=== PATIENT | male | born 1980 ===

== ENCOUNTER 2017-08-14 23:12 | Emergency (ER) | payer SELFPAY ==
[2017-08-15 00:12] VITALS: BMI 25.9
[2017-08-15 00:17] VITALS: BP 119/78; TEMP 98.2; O2SAT 98
[2017-08-15] MEDS ORDERED: DiphenhydrAMINE 50 mg/ml Inj IVP STA (00:26)
[2017-08-15] MEDS ORDERED: Sodium Chloride 0.9% 1,000 ML IV STA (00:55)
--- NOTE | 2017-08-15 01:11 | ED PDOC ---
Arrival/HPI <Schuyler Suarez - Last Filed: 08/15/17 01:29> - General Historian: Patient - History of Present Illness Time/Duration: Other (yesterday) <Radha Velázquez - Last Filed: 08/18/17 03:10> - General Chief Complaint: Allergic Reaction Time Seen by Provider: 08/15/17 00:12 - History of Present Illness Narrative History of Present Illness (Text): 08/15/17 01:08 37-year-old male presents today with allergic reaction. Patient states since yesterday around 7 PM he developed a rash to the right hand. Patient states he noticed the entire body became blotchy with redness. Patient denies chest pain or shortness of breath. Denies fevers or chills. Denies difficulty breathing or swallowing. Patient states he'll take a Benadryl at home and the symptoms will improve but then they will return after about 4-6 hours. Patient states at no point in time was he having any difficulty breathing or swallowing or feeling as if his throat was closing. Patient denies new soaps lotions or detergents, colognes or medications. Patient denies new foods. Patient denies sick contacts. Denies any other complaints. (Radha Velázquez) Past Medical History - Provider Review Nursing Documentation Reviewed: Yes - Travel History Have you recently traveled outside [place] w/in the past 3 mons?: No - Tetanus Immunization Tetanus Immunization: Unknown - Psychiatric Hx Substance Use: No <Radha Velázquez - Last Filed: 08/18/17 03:10> Family/Social History - Physician Review Nursing Documentation Reviewed: Yes Family/Social History: Unknown Family HX Smoking Status: Never Smoked Hx Alcohol Use: Yes Frequency of alcohol use: Socially Hx Substance Use: No <Radha Velázquez - Last Filed: 08/18/17 03:10> Allergies/Home Meds <Schuyler Suarez - Last Filed: 08/15/17 01:29> <Radha Velázquez - Last Filed: 08/18/17 03:10> Allergies/Adverse Reactions: Allergies No Known Allergies Allergy (Verified 08/15/17 00:11) Review of Systems - Review of Systems Constitutional: absent: Fatigue, Fevers Respiratory: absent: SOB, Cough Cardiovascular: absent: Chest Pain, Palpitations Gastrointestinal: absent: Abdominal Pain, Nausea, Vomiting Skin: Rash, Pruritis Neurological: absent: Headache, Dizziness Psychiatric: absent: Anxiety, Depression <Radha Velázquez - Last Filed: 08/18/17 03:10> Physical Exam Vital Signs Reviewed: Yes Temperature: Afebrile Blood Pressure: Normal Pulse: Tachycardic Respiratory Rate: Normal Appearance: Positive for: Well-Appearing, Non-Toxic, Comfortable Pain Distress: None Mental Status: Positive for: Alert and Oriented X 3 - Systems Exam Head: Present: Atraumatic Mouth: Present: Moist Mucous Membranes, Normal Lips, Normal Tounge. No: Trismus Pharnyx: Present: Normal. No: ERYTHEMA, EXUDATE, Peritonsilar Swelling, Muffled /Hoarse Voice, Strider, Soft Palate/Uvular Edema Nose (External): Present: Atraumatic Nose (Internal): Present: Normal Inspection Neck: Present: Normal Range of Motion Respiratory/Chest: Present: Clear to Auscultation, Good Air Exchange. No: Respiratory Distress, Accessory Muscle Use, Wheezes, Retracting, Rhonchi, Tachypneic Cardiovascular: Present: Regular Rate and Rhythm Abdomen: No: Tenderness Upper Extremity: Present: Normal ROM Lower Extremity: Present: Normal ROM Neurological: Present: GCS=15, Speech Normal Skin: Present: Warm, Dry, Rashes (skin erythema, multiple erythematous plaques noted to entire body; ), Normal Color Psychiatric: Present: Alert, Oriented x 3 <Radha Velázquez - Last Filed: 08/18/17 03:10> Vital Signs Temp Pulse Resp BP Pulse Ox 08/15/17 04:33 91 H 18 119/78 98 08/15/17 01:18 99 H 20 98 08/15/17 00:13 98.2 F 148 H 18 119/78 98 Medical Decision Making <Schuyler Suarez - Last Filed: 08/15/17 01:29> <Radha Velázquez - Last Filed: 08/18/17 03:10> ED Course and Treatment: 08/15/17 01:11 Patient is nontoxic well-appearing in no distress. no angioedema. Lungs are clear to auscultation bilaterally there is no wheezing noted. The airway is patent Benadryl 50 mg IV Solu-Medrol 125 mg IV Pepcid 20 mg IV Patient reassessment: After medications patient is feeling much better the lungs are clear to auscultation bilaterally the airway is patent the patient is speaking in full sentences. rash greatly improved. I advised taking Benadryl every 6 hours as needed for itch as well as prednisone daily x4 days. Advised patient to follow up with primary care physician within the next 2 days and return if symptoms worsen persist or if new symptoms develop. Patient was advised to follow-up with the construction teacher/streetcar repairer helper within the next 2 days. Patient verbalizes understanding of discharge instructions and need for immediate followup. all aspects of this case were discussed the attending of record. Impression :Allergic reaction Benadryl every 6 hours as needed for itch Prednisone once daily x4 days Pepcid one tablet daily Follow up with the primary care physician tomorrow Follow up with construction teacher/streetcar repairer helper within the next 2 days. Return if symptoms worsen persist or if new symptoms develop: Shortness of breath, feeling of throat closing, difficulty speaking or any other concerning symptoms develop (Radha Velázquez) - Medication Orders Current Medication Orders: Discontinued Medications Diphenhydramine HCl (Benadryl) 50 mg IVP STAT STA Stop: 08/15/17 00:27 Last Admin: 08/15/17 00:36 Dose: 50 mg IVP Administration Document 08/15/17 00:36 SS (Rec: 08/15/17 00:36 [id number]) Charges for Administration # of IVP Administrations 1 Famotidine (Pepcid) 20 mg IVP STAT STA Stop: 08/15/17 00:27 Last Admin: 08/15/17 00:36 Dose: 20 mg IVP Administration Document 08/15/17 00:36 SS (Rec: 08/15/17 00:36 [id number]) Charges for Administration # of IVP Administrations 1 Sodium Chloride (Sodium Chloride 0.9%) 1,000 mls @ 999 mls/hr IV .Q1H1M STA Stop: 08/15/17 01:55 Last Admin: 08/15/17 00:55 Dose: 999 mls/hr eMAR Start Stop Document 08/15/17 00:55 SS (Rec: 08/15/17 01:14 [id number]) Intravenous Solution Start Date 08/15/17 Start Time 00:55 End Date 08/15/17 End time 01:55 Total Infusion Time 60 Methylprednisolone (Solu-Medrol) 125 mg IVP STAT STA Stop: 08/15/17 00:27 Last Admin: 08/15/17 00:36 Dose: 125 mg IVP Administration Document 08/15/17 00:36 SS (Rec: 08/15/17 00:36 SS [id number]) Charges for Administration # of IVP Administrations 1 - PA / MANAGER TERMINAL / Resident Statement [facility] has reviewed & agrees with the documentation as recorded. [facility] has examined the patient and agrees with the treatment plan. <Schuyler Suarez - Last Filed: 08/15/17 01:29> Disposition/Present on Arrival <Schuyler Suarez - Last Filed: 08/15/17 01:29> - Present on Arrival Any Indicators Present on Arrival: No History of DVT/PE: No History of Uncontrolled Diabetes: No Urinary Catheter: No History of Decub. Ulcer: No History Surgical Site Infection Following: None - Disposition Have Diagnosis and Disposition been Completed?: Yes Disposition Time: 04:35 Patient Plan: Discharge <Radha Velázquez - Last Filed: 08/18/17 03:10> - Disposition Diagnosis: Allergic reaction Disposition: HOME/ ROUTINE Condition: GOOD Discharge Instructions (ExitCare): Ange Additional Instructions: Benadryl every 6 hours as needed for itch Prednisone once daily x4 days Pepcid one tablet daily Follow up with the primary care physician tomorrow Follow up with construction teacher/streetcar repairer helper within the next 2 days. Return if symptoms worsen persist or if new symptoms develop: Shortness of breath, feeling of throat closing, difficulty speaking or any other concerning symptoms develop Prescriptions: DiphenhydrAMINE [Benadryl] 25 mg PO Q6H #20 cap Famotidine [Pepcid] 20 mg PO DAILY #30 tab predniSONE [predniSONE Tab] 3 tab PO DAILY #12 tab Referrals: Richard Ashley MD [Staff Provider] - Follow up with primary Leland Gatica MD [Staff Provider] - Follow up with primary Nikki Hill MD [Staff Provider] - Follow up with primary Forms: [employer] ([place]rian), WORK NOTE
[2017-08-15 04:35] VITALS: PULSE 91; RESP 18
== END 2017-08-15 04:35 | disposition home or self-care (01) ==
LOC: ED 23:12
DX: T78.49XA Other allergy, initial encounter (principal); X58.XXXA Exposure to other specified factors, initial encounter
CPT/HCPCS: 96361; 96374; 96375; 99284; J1200; J2930; J7040